=== PATIENT | female | born 2000 | race Caucasian/White ===

== ENCOUNTER 2021-10-25 06:42 | Inpatient (IN) | payer BC ==
[~2021-10-25] VITALS: Ht 175.3 cm; Wt 98.6 kg
[2021-10-25] VITALS (16 sets, daily range): BP systolic 103–134; BP diastolic 52–76; PULSE 59–88; TEMP 97.5–98
[~2021-10-25 06:42] MED LIST: MOTRIN 800800 MG/TAB PO; NATURAL IRON65 MG; NO HOME MEDICATIONS; NORCO 325 MG-51 TAB PO; PERCOCET 325 MG1 TA2 PO; PRENATAL MVI; PRENATAL TABLET PO; TYLENOL 325MG325 MG PO; ZOFRAN 4MG T4 MG/TAB PO; ZOLOFT 25MG25 MG PO
--- NOTE | 2021-10-25 09:10 | NUR ---
PT PRESENTS TO L&D IN STABLE CONDITION FOR SCHEDULED C/S. PT AMBULATED ON UNIT ACCOMPANIED BY SPOUSE SANDRA. PT PLACED IN ROOM 213 AND CHANGED INTO CLEAN GOWN. PT DENIES DECREASED FM, VAGINAL BLEEDING, LEAKING OF FLUID OR CONTRACTIONS. PT PLACED ON MONITOR. CATEGORY 1 STRIP WITH FHR 115 AT THIS TIME. UPDATED CARE PLAN.
[2021-10-25 09:49] LABS: BASO % 0.2 % (0.0-2.0); EOS # 0.2 K/mm3 (0.0-0.7); EOS % 2.4 % (0.0-4.0); GRAN # 6.6 K/mm3 (1.4-6.5); GRAN % 70.5 % (42.2-75.2); HEMOGLOBIN 10.4 g/dl (12.5-16.0); LYMPH % 20.8 % (20.0-51.0); MEAN CELL VOLUME 85 fl (80.0-100.0); MEAN CORPUSCULAR HEMOGLOBIN 28 pg (27-31); MEAN CORPUSCULAR HGB CONC 33 g/dl (33.0-37.0); MEAN PLATELET VOLUME 11.7 fl (7.4-10.4); MONO # 0.5 K/mm3 (0.1-0.6); MONO % 5.2 % (1.7-9.3); PLATELET COUNT 194 K/mm3 (130-400); RED BLOOD COUNT 3.74 M/mm3 (4.10-5.30); REDCELL DISTRIBUTION WIDTH-CV 13.8 % (11.5-14.5)
[2021-10-25 09:51] LABS: HEMATOCRIT 31.7 % (37.0-47.0)
[2021-10-25] MEDS ORDERED: MOTRIN 800800 MG/TAB PO (11:37)
[2021-10-25] MEDS ORDERED: PERCOCET 325 MG1 TA2 PO (11:37)
--- NOTE | 2021-10-25 15:31 | NUR ---
PT GIVEN BREAST PUMP. RN EDUCATED ON BREAST PUMP USE AND MAINTENANCE. PT VERBALIZED UNDERSTANDING AND DEMONSTRATED PROPER USE.
[2021-10-26 01:15] VITALS: BP 114/51; PULSE 72; TEMP 98.3
[2021-10-26 07:40] VITALS: BP 127/81; PULSE 82; TEMP 97.9
--- NOTE | 2021-10-26 09:24 | NUR ---
Initial visit; Parents thanked Cane Cutter for offering congratulations and God's blessings for the of their son. Cane Cutter thanked family for choosing [facility].
[2021-10-26 15:54] VITALS: BP 121/61; PULSE 76; TEMP 97.6
[2021-10-26 20:00] VITALS: BP 112/62; PULSE 87; TEMP 98.2
[2021-10-27 09:09] VITALS: BP 119/72; PULSE 70; TEMP 97.2
[2021-10-27] MEDS ORDERED: MOTRIN 800800 MG/TAB PO (13:41)
[2021-10-27] MEDS ORDERED: PERCOCET 325 MG1 TA2 PO (13:41)
[2021-10-27 17:46] VITALS: BP 129/69; PULSE 77; TEMP 97.7
[2021-10-27 20:24] VITALS: BP 125/68; PULSE 66; TEMP 97.8
== END 2021-10-27 23:59 | disposition home or self-care (01) | DRG 788 ==
LOC: OB 06:42
PROVIDERS: ADMIT Obstetrics & Gynecology
PROC: 10D00Z1 Extraction of Products of Conception, Low, Open Approach (ICD-10-PCS; principal; 2021-10-25)
DX: O34.211 Maternal care for low transverse scar from previous cesarean delivery (principal); O99.344 Other mental disorders complicating childbirth; F32.A Depression, unspecified; Z3A.39 39 weeks gestation of pregnancy; Z37.0 Single live birth; F41.9 Anxiety disorder, unspecified; O99.02 Anemia complicating childbirth; D64.9 Anemia, unspecified; O99.824 Streptococcus B carrier state complicating childbirth; O69.81X0 Labor and delivery complicated by cord around neck, without compression, not applicable or unspecified; K21.9 Gastro-esophageal reflux disease without esophagitis; O99.62 Diseases of the digestive system complicating childbirth; Z88.0 Allergy status to penicillin
CPT/HCPCS: J0690; J1100; J1885; J2405; J2590; J2765; J7120